=== PATIENT | male | born 1980 | race American Indian/Alaskan Native ===

== ENCOUNTER 2020-09-24 19:45 | Emergency (ER) | payer MEDICAID ==
[2020-09-24] MEDS ORDERED: Sodium Chloride 0.9% 10 ML Syringe FLUSH PRN (20:08)
[2020-09-24] MEDS ORDERED: Sodium Chloride 0.9% 2.5 ML Syringe FLUSH PRN (20:08)
--- NOTE | 2020-09-24 20:13 | EDM.PDOC ---
ED HPI GENERAL MEDICAL PROBLEM - General Chief Complaint: Lower Extremity Injury/Pain Stated Complaint: RECENT FEET SURGERY COMPLICATIONS Time Seen by Provider: 09/24/20 19:51 - History of Present Illness INITIAL COMMENTS - FREE TEXT/NARRATIVE: History of present illness: [] The patient has 2 complaints. The right foot has an ulcer and his newspaper vendor plans to revise and possibly put some hardware into the right foot because the chronic degenerative changes. The ulcer broke open over the last few days. The patient on the left foot has a recent amputation of the great toe. This was done at [facility] by Dr. Kenny Wyatt [phone] the of this month. The wound dehisced 3 days ago. He has progressive increased drainage and foul smell when he changes the dressings. He does not see his newspaper vendor until next week. The patient is a diabetic and his blood sugars run in the 300s. He does not perceive pain as well as ordinarily because he has neuropathy. The patient has no systemic signs of illness such as fever weakness chills or nausea. Review of systems: As per history of present illness and below otherwise all systems reviewed and negative. Past medical history: As per history of present illness and as reviewed below otherwise noncontributory. Surgical history: As per history of present illness and as reviewed below otherwise noncontributory. Social history: No reported history of drug or alcohol abuse. Family history: As per history of present illness and as reviewed below otherwise noncontributory. Physical exam: Constitutional - well developed, well-nourished and in no acute distress HEENT - normocephalic, no evidence of trauma - external nose and mouth normal - no mass in neck and no JVD - mucosae moist EYES - full EOM, PERRL, no icterus - no evidence of inflammation, injection, or drainage Respiratory - no respiratory distress, equal bilateral expansion Musculoskeletal foot has swelling at the MPJ with a bunion that has a wound dehiscence 1-1/2 cm x 4 mm. The left foot has a dehiscence of his surgical wound with deep full-thickness dehiscence and yellow purulent foul-smelling material coming from the wound. It was swabbed for culture. Missing the large toe on the left foot which is a surgical amputation site. No gross deformity of long bones or joints - no tenderness, swelling or edema Neurologic - Alert and oriented times four - CN II-XII grossly intact - motor sensory and coordination symmetrically normal Psychiatric - appropriate mood and affect with normal thought content Hematologic - No petechiae or purpura - mucosa appropriate color and sclera not pale - normal nail bed color and refill Integument - no rash or evidence of trauma - normal turgor Diagnostics: [] Therapeutics: [] Impression: [] Plan: [] Definitive disposition and diagnosis as appropriate pending reevaluation and review of above. left foot Pain Score (Numeric/FACES): 8 - Related Data Allergies Allergy/AdvReac Type Severity Reaction Status Date / Time No Known Allergies Allergy Verified 09/24/20 19:52 Home Meds: Home Meds Insulin Humalog 10 units SUBCUT TIDAC 07/07/14 [History] Insulin Levimir 100 units SUBCUT BIDAC 07/07/14 [History] metFORMIN [Glucophage] 2,000 mg PO DAILY 07/07/14 [History] Hydrocodone/Acetaminophen [Frierson 5-325 Tablet] 1 each PO ASDIRECTED PRN 09/24/20 [History] levoFLOXacin [Levofloxacin] 250 mg PO DAILY 09/24/20 [History] Past Medical History HEENT History: Reports: Impaired Vision Cardiovascular History: Reports: Hypertension Respiratory History: Reports: None Gastrointestinal History: Reports: None Genitourinary History: Reports: None Neurological History: Reports: None Psychiatric History: Reports: None Endocrine/Metabolic History: Reports: Diabetes, Type II Hematologic History: Reports: None Dermatologic History: Reports: None - Infectious Disease History Infectious Disease History: Reports: Chicken Pox - Past Surgical History Musculoskeletal Surgical History: Reports: Amputation Other Musculoskeletal Surgeries/Procedures:: left foot surgery Social & Family History - Family History Family Medical History: Noncontributory - Tobacco Use Tobacco Use Status *Q: Current Every Day Tobacco User Years of Tobacco use: 20 Packs/Tins Daily: 1 - Recreational Drug Use Recreational Drug Use: No Review of Systems - Review of Systems Review Of Systems: Comprehensive ROS is negative, except as noted in HPI. ED EXAM, GENERAL - Physical Exam Exam: See Below Free Text/Narrative:: Physical exam as in the HPI Course - Vital Signs Text/Narrative:: [place] case with , his newspaper vendor partner. He agreed with the plan to remove the sutures that were no longer functional holding the skin together, irrigate out the dehisced area, and start wet-to-dry dressings. He agreed with a one-time vancomycin and then continue Levaquin. The patient is to call in the morning as needed and follow-up next week as scheduled. Last Recorded V/S: Last Vital Signs Temp 98.1 F 09/24/20 19:55 Pulse 113 H 09/24/20 19:55 Resp 18 09/24/20 19:55 BP 140/89 09/24/20 19:55 Pulse Ox 96 09/24/20 19:55 - Orders/Labs/Meds Orders: Active Orders 24 hr Category Date Time Status Communication Order [RC] STAT Care 09/24/20 20:10 Active Sodium Chloride 0.9% [Saline Flush] Med 09/24/20 20:08 Active 10 ml FLUSH ASDIRECTED PRN Sodium Chloride 0.9% [Saline Flush] Med 09/24/20 20:08 Active 2.5 ml FLUSH ASDIRECTED PRN Vancomycin 1 gm Med 09/24/20 20:10 Active Sodium Chloride 0.9% [Normal Saline (AdvBag)] 250 ml IV ONETIME Saline Lock Insert [OM.PC] Stat Oth 09/24/20 20:09 Ordered Medication Orders Vancomycin HCl 1 gm/ Sodium (Chloride) 250 mls @ 166 mls/hr IV ONETIME ONE Stop: 09/24/20 21:40 Last Admin: 09/24/20 20:50 Dose: 166 mls/hr Documented by: QAMAR Sodium Chloride (Saline Flush) 10 ml FLUSH ASDIRECTED PRN PRN Reason: Keep Vein Open Sodium Chloride (Saline Flush) 2.5 ml FLUSH ASDIRECTED PRN PRN Reason: Keep Vein Open Labs: Laboratory Tests 09/24/20 09/24/20 09/24/20 Range/Units 20:21 20:21 20:21 WBC 9.50 (4.0-11.0) K/uL RBC 4.92 (4.50-5.90) M/uL Hgb 14.8 (13.0-17.0) g/dL Hct 42.6 (38.0-50.0) % MCV 86.6 (80.0-98.0) fL MCH 30.1 (27.0-32.0) pg MCHC 34.7 (31.0-37.0) g/dL RDW Std Deviation 43.8 (28.0-62.0) fl RDW Coeff of Deena 14 (11.0-15.0) % Plt Count 337 (150-400) K/uL MPV 9.90 (7.40-12.00) fL Neut % (Auto) 65.7 (48.0-80.0) % Lymph % (Auto) 23.8 (16.0-40.0) % [place] % (Auto) 8.3 (0.0-15.0) % Eos % (Auto) 1.8 (0.0-7.0) % Baso % (Auto) 0.4 (0.0-1.5) % Neut # (Auto) 6.2 H (1.4-5.7) K/uL Lymph # (Auto) 2.3 (0.6-2.4) K/uL [place] # (Auto) 0.8 (0.0-0.8) K/uL Eos # (Auto) 0.2 (0.0-0.7) K/uL Baso # (Auto) 0.0 (0.0-0.1) K/uL Nucleated RBC % 0.0 /100WBC Nucleated RBCs # 0 K/uL ESR 79 H (0-14) mm/hr Sodium 134 L (136-148) mmol/L Potassium 3.5 (3.5-5.1) mmol/L Chloride 101 (98-107) mmol/L Carbon Dioxide 22.5 (21.0-32.0) mmol/L BUN 17 (7.0-18.0) mg/dL Creatinine 1.5 H (0.8-1.3) mg/dL Est Cr Clr Drug Dosing 80.85 mL/min Estimated GFR (MDRD) 51.3 ml/min Glucose 293 H (74-106) mg/dL Calcium 8.2 L (8.5-10.1) mg/dL Meds: Medications Generic Name Dose Route Start Last Admin Trade Name Freq PRN Reason Stop Dose Admin Vancomycin HCl 1 gm/ Sodium 250 mls @ 166 mls/hr 09/24/20 20:10 09/24/20 20:50 Chloride IV 09/24/20 21:40 166 mls/hr ONETIME ONE Administration Sodium Chloride 10 ml 09/24/20 20:08 Saline Flush FLUSH ASDIRECTED PRN Keep Vein Open Sodium Chloride 2.5 ml 09/24/20 20:08 Saline Flush FLUSH ASDIRECTED PRN Keep Vein Open Discontinued Medications Generic Name Dose Route Start Last Admin Trade Name Yovani PRN Reason Stop Dose Admin Vancomycin HCl Confirm 09/24/20 20:40 Vancocin Administered 09/24/20 20:41 Dose 1 gm .ROUTE .STK-MED ONE Departure - Departure Time of Disposition: 21:25 Disposition: Home, Self-Care 01 Condition: Good Clinical Impression: Dehiscence of amputation stump, Wound infection Ulcer of right foot Qualifiers: Non-pressure ulcer stage: limited to breakdown of skin Qualified Code(s): L97.511 - Non-pressure chronic ulcer of other part of right foot limited to breakdown of skin - Discharge Information Instructions: Diabetes Mellitus and Foot Care Referrals: Porfirio Man [Primary Care Provider] - Kenny Wyatt DPM [Ordering Only Provider] - Forms: ED Department Discharge Additional Instructions: To carolann Falcon. Do wet-to-dry dressings. If you get signs of illness such as fever weakness of your legs return to the emergency department or call your doctor tomorrow. Follow-up as scheduled The following information is given to patients seen in the emergency department who are being discharged to home. This information is to outline your options for follow-up care. We provide all patients seen in our emergency department with a follow-up referral. The need for follow-up, as well as the timing and circumstances, are variable depending upon the specifics of your emergency department visit. If you don't have a primary care physician on staff, we will provide you with a referral. We always advise you to contact your personal physician following an emergency department visit to inform them of the circumstance of the visit and for follow-up with them and/or the need for any referrals to a consulting specialist. The emergency department will also refer you to a specialist when appropriate. This referral assures that you have the opportunity for follow-up care with a specialist. All of these measure are taken in an effort to provide you with optimal care, which includes your follow-up. Under all circumstances we always encourage you to contact your private physician who remains a resource for coordinating your care. When calling for follow-up care, please make the office aware that this follow-up is from your recent emergency room visit. If for any reason you are refused follow-up, please contact the [facility] Emergency Department at and asked to speak to the emergency department charge nurse. [facility] [address] [place] [address] [facility] [address] [place] [address] Sepsis Event Note (ED) - Evaluation Sepsis Screening Result: No Definite Risk - Focused Exam Vital Signs: Vital Signs Temp Pulse Resp BP Pulse Ox 09/24/20 19:55 98.1 F 113 H 18 140/89 96 - My Orders Last 24 Hours: My Active Orders 09/24/20 20:08 Sodium Chloride 0.9% [Saline Flush] 10 ml FLUSH ASDIRECTED PRN Sodium Chloride 0.9% [Saline Flush] 2.5 ml FLUSH ASDIRECTED PRN 09/24/20 20:09 Saline Lock Insert [OM.PC] Stat 09/24/20 20:10 Communication Order [RC] STAT Vancomycin 1 gm Sodium Chloride 0.9% [Normal Saline (AdvBag)] 250 ml IV ONETIME - Assessment/Plan Last 24 Hours: My Active Orders 09/24/20 20:08 Sodium Chloride 0.9% [Saline Flush] 10 ml FLUSH ASDIRECTED PRN Sodium Chloride 0.9% [Saline Flush] 2.5 ml FLUSH ASDIRECTED PRN 09/24/20 20:09 Saline Lock Insert [OM.PC] Stat 09/24/20 20:10 Communication Order [RC] STAT Vancomycin 1 gm Sodium Chloride 0.9% [Normal Saline (AdvBag)] 250 ml IV ONETIME
--- NOTE | 2020-09-24 20:38 | CR ---
Indication: Infection at a dehisced amputation site Technique: AP and lateral views Comparison: None Findings: There is demonstration of prior amputation of the distal 1st and 2nd digits with likely chronic hammertoe deformities of the 3rd through 5th digits. There is focal soft tissue swelling and subcutaneous emphysema within the soft tissues anterior to the osteotomy site. There is no overt periosteal reaction or osteolysis. Impression: Demonstration of prior amputation of the 1st and 2nd digits with subcutaneous emphysema in the soft tissues consistent with history of amputation. No obvious osteolysis is noted, however if there remains persisting concern an MRI with contrast is more sensitive to detect subtle edema and enhancement in the setting of osteomyelitis. Dictated by Darren Yoder MD @ Sep 24 2020 8:34PM Signed by Dr. Darren Yoder @ Sep 24 2020 8:36PM
[2020-09-24] MEDS ORDERED: Vancomycin 1 GM AdvVial ONE (20:40)
[2020-09-24 20:41] LABS: CARBON DIOXIDE,CO2 22.5 mmol/L (21.0-32.0); POTASSIUM,K 3.5 mmol/L (3.5-5.1)
== END 2020-09-24 22:16 | disposition home or self-care (01) ==
LOC: MW.ED 19:45
DX: T87.81 Dehiscence of amputation stump (principal); T87.44 Infection of amputation stump, left lower extremity; L97.511 Non-pressure chronic ulcer of other part of right foot limited to breakdown of skin; I10 Essential (primary) hypertension; E11.9 Type 2 diabetes mellitus without complications; Z79.4 Long term (current) use of insulin; Z79.899 Other long term (current) drug therapy; F17.210 Nicotine dependence, cigarettes, uncomplicated
CPT/HCPCS: 36415; 73620; 80048; 85025; 85652; 87070; 96365; 99284; J3370; J7050; 87077; 87186; 99283

== ENCOUNTER 2021-11-03 09:53 | Emergency (ER) | payer MEDICAID ==
--- NOTE | 2021-11-03 10:52 | EDM.PDOC ---
ED HPI GENERAL MEDICAL PROBLEM - General Chief Complaint: Eye Problems Stated Complaint: BLURRY VISION RT EYE Time Seen by Provider: 11/03/21 10:00 Source of Information: Reports: Patient History Limitations: Reports: No Limitations - History of Present Illness INITIAL COMMENTS - FREE TEXT/NARRATIVE: Patient is a 41-year-old male history of diabetes presents today for seeing what he believes is blood or something red in his right eye. He woke up and had this. Denies any trauma to the eye denies any change in his vision denies any pain to the eye. States has never had this before in the past. Other than the redness in his eye does not have any other complaints or concerns. - Related Data Allergies Allergy/AdvReac Type Severity Reaction Status Date / Time No Known Allergies Allergy Verified 11/03/21 10:03 Home Meds: Home Meds Insulin Humalog 10 units SUBCUT TIDAC 07/07/14 [History] Insulin Levimir 100 units SUBCUT BIDAC 07/07/14 [History] metFORMIN [Glucophage] 2,000 mg PO DAILY 07/07/14 [History] Empagliflozin [Jardiance] 25 mg PO 11/03/21 [History] Sertraline [Zoloft] 100 mg PO DAILY 11/03/21 [History] Past Medical History HEENT History: Reports: Impaired Vision Cardiovascular History: Reports: Hypertension Respiratory History: Reports: None Gastrointestinal History: Reports: None Genitourinary History: Reports: None Neurological History: Reports: None Psychiatric History: Reports: None Endocrine/Metabolic History: Reports: Diabetes, Type II Hematologic History: Reports: None Dermatologic History: Reports: None - Infectious Disease History Infectious Disease History: Reports: Chicken Pox - Past Surgical History Musculoskeletal Surgical History: Reports: Amputation Other Musculoskeletal Surgeries/Procedures:: left foot surgery Social & Family History - Family History Family Medical History: No Pertinent Family History - Tobacco Use Tobacco Use Status *Q: Current Every Day Tobacco User Years of Tobacco use: 28 Packs/Tins Daily: 1 - Caffeine Use Caffeine Use: Reports: None - Alcohol Use Days Per Week of Alcohol Use: 1 Number of Drinks Per Day: 12 Total Drinks Per Week: 12 - Recreational Drug Use Recreational Drug Use: No ED ROS GENERAL - Review of Systems Review Of Systems: See Below Constitutional: Reports: No Symptoms HEENT: Reports: Other (Redness and eye field) Respiratory: Reports: No Symptoms Cardiovascular: Reports: No Symptoms Endocrine: Reports: No Symptoms GI/Abdominal: Reports: No Symptoms : Reports: No Symptoms Musculoskeletal: Reports: No Symptoms Skin: Reports: No Symptoms Neurological: Reports: No Symptoms Psychiatric: Reports: No Symptoms Hematologic/Lymphatic: Reports: No Symptoms Immunologic: Reports: No Symptoms ED EXAM GENERAL W FULL EYE - Physical Exam Exam: See Below Exam Limited By: No Limitations General Appearance: Alert, WD/WN, No Apparent Distress Eye Exam: Bilateral Eye: EOMI, PERRL Eyelids: Bilateral: Normal Appearance Conjunctiva & Sclera: Bilateral: Normal Appearance Cornea Exam: Bilateral: Normal Appearance Extraocular Movements: Bilateral: Intact Pupils: Normal Accommodation Ears: Normal External Exam Head: Atraumatic Respiratory/Chest: No Respiratory Distress Neurological: Alert, Oriented, Normal Cognition, Normal Gait Course - Vital Signs Last Recorded V/S: Last Vital Signs Temp 98.3 F 11/03/21 10:04 Pulse 98 11/03/21 10:04 Resp 16 11/03/21 10:04 BP 195/116 H 11/03/21 10:04 Pulse Ox 98 11/03/21 10:04 - Orders/Labs/Meds Orders: Active Orders 24 hr Category Date Time Status Visual Acuity [Vision Test] [RC] ASDIRECTED Care 11/03/21 10:45 Ordered Departure - Departure Time of Disposition: 10:50 Disposition: Home, Self-Care 01 Condition: Good Clinical Impression: Vitreous hemorrhage, Vitreous floaters of right eye - Discharge Information *PRESCRIPTION DRUG MONITORING PROGRAM REVIEWED*: Not Applicable *COPY OF PRESCRIPTION DRUG MONITORING REPORT IN PATIENT MELISSA: Not Applicable Instructions: Eye Floaters Additional Instructions: You are seen today for seeing a possible red floater in your right eye. We did a bedside sonogram and you could have something called vitreal hemorrhage we are not sure and cannot really confirm the diagnosis we would like to refer you to the eye clinic the numbers below as well as address they can see today at 2:45 PM please make every effort to go there. If you have any other complaints please feel free to return to the ER otherwise follow-up with primary care physician. The following information is given to patients seen in the emergency department who are being discharged to home. This information is to outline your options for follow-up care. We provide all patients seen in our emergency department with a follow-up referral. The need for follow-up, as well as the timing and circumstances, are variable depending upon the specifics of your emergency department visit. If you don't have a primary care physician on staff, we will provide you with a referral. We always advise you to contact your personal physician following an emergency department visit to inform them of the circumstance of the visit and for follow-up with them and/or the need for any referrals to a consulting specialist. The emergency department will also refer you to a specialist when appropriate. This referral assures that you have the opportunity for follow-up care with a specialist. All of these measure are taken in an effort to provide you with optimal care, which includes your follow-up. Under all circumstances we always encourage you to contact your private physician who remains a resource for coordinating your care. When calling for follow-up care, please make the office aware that this follow-up is from your recent emergency room visit. If for any reason you are refused follow-up, please contact the [facility] Emergency Department at and asked to speak to the emergency department charge nurse. Please follow up with your primary care physician. If you do not have a primary care physician, see below: Ophthalmology Location [address] [place] [id number] [address] Sepsis Event Note (ED) - Evaluation Sepsis Screening Result: No Definite Risk - Focused Exam Vital Signs: Vital Signs Temp Pulse Resp BP Pulse Ox 11/03/21 10:04 98.3 F 98 16 195/116 H 98 - My Orders Last 24 Hours: My Active Orders 11/03/21 10:45 Visual Acuity [Vision Test] [RC] ASDIRECTED - Assessment/Plan Last 24 Hours: My Active Orders 11/03/21 10:45 Visual Acuity [Vision Test] [RC] ASDIRECTED Plan: Patient is a 41-year-old male history of diabetes presents today for seen red floaters in his eye. Does not have any vision changes no pain on exam we did do a ocular ultrasound and we do see some floaters which could be a vitreal hemorrhage. We spoke to the senior web developer and they can see the patient today this afternoon at 245 patient will be sent over there.
== END 2021-11-03 11:09 | disposition home or self-care (01) ==
LOC: MW.ED 09:53
DX: H43.391 Other vitreous opacities, right eye (principal); H43.11 Vitreous hemorrhage, right eye; I10 Essential (primary) hypertension; E11.9 Type 2 diabetes mellitus without complications; Z72.0 Tobacco use; Z79.4 Long term (current) use of insulin; Z79.899 Other long term (current) drug therapy
CPT/HCPCS: 99283

== ENCOUNTER 2022-06-20 12:57 | Emergency (ER) | payer MEDICARE, MEDICAID | END 2022-06-20 15:19 | disposition home or self-care (01) | LOC: MW.ED 12:57 | DX: N40.1 Benign prostatic hyperplasia with lower urinary tract symptoms (principal); R33.9 Retention of urine, unspecified; I10 Essential (primary) hypertension; E11.9 Type 2 diabetes mellitus without complications; Z79.4 Long term (current) use of insulin | CPT/HCPCS: 51798; 81001; 99283 ==

== ENCOUNTER 2022-11-13 22:37 | Emergency (ER) | payer MEDICARE, MEDICAID ==
[2022-11-13] MEDS ORDERED: Morphine 4 MG/ML Syringe IVPUSH ONE (23:00)
[2022-11-14 00:28] LABS: CARBON DIOXIDE,CO2 27.8 mmol/L (21.0-32.0); POTASSIUM,K 3.3 mmol/L (3.5-5.1)
[2022-11-14] MEDS ORDERED: Piperacillin/Tazobactam 2.25 GM in Sodium Chloride 0.9% 50 ML IV STA (02:11)
[2022-11-14] MEDS ORDERED: Doxycycline 100 MG Cap PO ONE (02:18)
[2022-11-14] MEDS ORDERED: VANCOmycin 2 GM/400 ML 2 GM in Premix Bag 1 BAG IV ONE (02:30)
[2022-11-14] MEDS ORDERED: Nicotine 21 MG/24 Hr Patch TRDERM ONE (03:09)
[2022-11-14] MEDS ORDERED: Acetaminophen 500 MG Tab PO ONE (03:39)
== END 2022-11-14 05:38 ==
LOC: MW.ED 22:37
DX: L03.314 Cellulitis of groin (principal); N45.2 Orchitis; I10 Essential (primary) hypertension; E11.9 Type 2 diabetes mellitus without complications; Z79.4 Long term (current) use of insulin; Z79.84 Long term (current) use of oral hypoglycemic drugs; Z79.899 Other long term (current) drug therapy; Z20.822 Contact with and (suspected) exposure to COVID-19
CPT/HCPCS: 36415; 74176; 76870; 80053; 83605; 85025; 87040; 93976; 96365; 96366; 96367; 96375; 99285; A9270; J2270; J2543; J3370; U0002

== ENCOUNTER 2023-03-18 06:42 | Day surgery (SDC) | payer MEDICARE, MEDICAID, OTHER ==
[~2023-03-18 06:42] MED LIST: Lactated Ringers 1,000 ML IV SCH
[2023-03-18] MEDS ORDERED: Sodium Chloride 0.9% 500 ML IV STA (07:02)
[2023-03-18] MEDS ORDERED: Lidocaine 2% 5 ML SDV ONE (07:29)
[2023-03-18] MEDS ORDERED: Water For Injection, Sterile 20 ML ONE (07:29)
[2023-03-18] MEDS ORDERED: Propofol 200 MG/20 ML SDV ONE ×2 (07:29→08:26)
[2023-03-18] MEDS ORDERED: Dexmedetomidine 200 MCG/2 ML SDV ONE (07:29)
[2023-03-18] MEDS ORDERED: fentaNYL 100 MCG/2 ML SDV ONE (07:30)
[2023-03-18] MEDS ORDERED: Bupivacaine 0.5% 30 ML SDV ONE (07:47)
[2023-03-18] MEDS ORDERED: Lidocaine 1% 20 ML MDV ONE (07:48)
[2023-03-18] MEDS ORDERED: Lidocaine 1% 5 ML VIAL ONE (08:08)
[2023-03-18] MEDS ORDERED: propofoL 0 ML ONE (08:25)
[2023-03-18] MEDS ORDERED: Lactated Ringers 1,000 ML IV SCH (09:15)
== END 2023-03-18 10:25 | disposition home or self-care (01) ==
LOC: MW.SDS 06:42
PROVIDERS: ATTEND Surgery
DX: E11.22 Type 2 diabetes mellitus with diabetic chronic kidney disease (principal); I12.0 Hypertensive chronic kidney disease with stage 5 chronic kidney disease or end stage renal disease; N18.6 End stage renal disease; I77.0 Arteriovenous fistula, acquired; F41.9 Anxiety disorder, unspecified; N40.0 Benign prostatic hyperplasia without lower urinary tract symptoms; F17.210 Nicotine dependence, cigarettes, uncomplicated; Z98.890 Other specified postprocedural states; Z79.01 Long term (current) use of anticoagulants; Z79.899 Other long term (current) drug therapy
CPT/HCPCS: 36589; 82947; J2704; J3010; J3490; J7040; 00400; 88300

== ENCOUNTER 2023-04-25 17:16 | Emergency (ER) | payer MEDICARE, MEDICAID ==
[2023-04-25] MEDS ORDERED: Sulfamethoxazole/Trimethoprim 800-160 MG Tab PO ONE (18:05)
[2023-04-25] MEDS ORDERED: Amoxicillin/Clavulanate K 875-125 MG Tab PO ONE (18:05)
== END 2023-04-25 19:16 | disposition home or self-care (01) ==
LOC: MW.ED 17:16
DX: E11.621 Type 2 diabetes mellitus with foot ulcer (principal); L97.529 Non-pressure chronic ulcer of other part of left foot with unspecified severity; L97.519 Non-pressure chronic ulcer of other part of right foot with unspecified severity; E78.00 Pure hypercholesterolemia, unspecified; I12.0 Hypertensive chronic kidney disease with stage 5 chronic kidney disease or end stage renal disease; N18.6 End stage renal disease; E66.9 Obesity, unspecified; Z68.33 Body mass index [BMI] 33.0-33.9, adult; Z99.2 Dependence on renal dialysis; Z79.899 Other long term (current) drug therapy; Z79.01 Long term (current) use of anticoagulants; Z91.030 Bee allergy status
CPT/HCPCS: 73620; 99283; A9270

== ENCOUNTER 2024-05-17 09:02 | Emergency (ER) | payer MEDICAID, MEDICARE ==
[2024-05-17 09:26] LABS: BASOPHILS ABSOLUTE AUTO 0.02 K/uL (0.00-0.20); BASOPHILS PERCENT AUTO 0.2 % (0.0-1.0); EOSINOPHILS ABSOLUTE AUTO 0.26 K/uL (0.00-0.45); EOSINOPHILS PERCENT AUTO 2.5 % (0.0-6.0); HEMOGLOBIN 8.5 g/dL (14.0-18.0); IMMATURE GRAN ABSOLUTE AUTO 0.03 K/uL (0.00-0.05); IMMATURE GRAN PERCENT AUTO 0.3 % (0.0-0.4); LYMPHOCYTES ABSOLUTE AUTO 1.37 K/uL (1.00-4.80); LYMPHOCYTES PERCENT AUTO 13.1 % (24.0-44.0); MEAN CORPUSCULAR HEMOGLOBIN 32.4 pg (28.0-32.0); MEAN CORPUSCULAR VOLUME 95.4 fL (83.0-99.0); MEAN PLATELET VOLUME 9.7 fL (9.4-12.4); MONOCYTES ABSOLUTE AUTO 0.91 K/uL (0.00-0.80); MONOCYTES PERCENT AUTO 8.7 % (0.0-8.0); NEUTROPHILS ABSOLUTE AUTO 7.88 K/uL (1.80-7.70); NEUTROPHILS PERCENT AUTO 75.2 % (41.0-71.0); PLATELET COUNT,PLT 214 K/uL (150-400); RED BLOOD CELL COUNT 2.62 M/uL (4.52-5.90); WHITE BLOOD CELL COUNT,WBC 10.47 K/uL (3.9-11.3)
[2024-05-17 09:47] LABS: D-DIMER QUANTITATIVE 3.75 mg/L FEU (0.00-0.50); INR 1.11 (0.86-1.11); PTT,PARTIAL THROMBOPLSTIN TIME 35.9 SEC (23.9-30.7)
[2024-05-17] MEDS: cefTRIAXone 2 GM in Sodium Chloride 0.9% 50 ML IV ONE (09:48)
[2024-05-17] MEDS: Acetaminophen 500 MG Tab PO ONE (09:48)
[2024-05-17] MEDS: Sodium Chloride 0.9% 10 ML Syringe FLUSH PRN (09:48)
[2024-05-17] MEDS: Sodium Chloride 0.9% 2.5 ML Syringe FLUSH PRN (09:49)
[2024-05-17 10:01] LABS: LACTIC ACID 1.1 mmol/L (0.4-2.0)
[2024-05-17 10:08] LABS: BILIRUBIN TOTAL 0.6 mg/dL (0.2-1.0); CALCIUM 7.7 mg/dL (8.5-10.1); CARBON DIOXIDE,CO2 33.9 mmol/L (21.0-32.0); CREATININE 8.2 mg/dL (0.8-1.3); EST CRCL DRUG DOSING (CG) 14.19 mL/min; MAGNESIUM 1.5 mg/dL (1.8-2.4); PHOSPHORUS 3.3 mg/dL (2.6-4.7); POTASSIUM,K 3.6 mmol/L (3.5-5.1); PROTEIN TOTAL,TP 8.5 g/dL (6.4-8.2); TSH ULTRASENSITIVE 0.71 uIU/mL (0.36-3.74)
[2024-05-17 10:12] LABS: A/G RATIO 0.6 (0.9-1.6)
[2024-05-17] MEDS: Iopamidol 755 MG/ML 500 ML Multipack Bottle IVPUSH STA (12:07)
[2024-05-17] MEDS ORDERED: VANCOmycin 2 GM/400 ML 2 GM in Premix Bag 1 BAG IV ONE (13:45)
== END 2024-05-17 14:27 | disposition left against medical advice (07) ==
LOC: MW.ED 09:02
DX: L03.115 Cellulitis of right lower limb (principal); L97.519 Non-pressure chronic ulcer of other part of right foot with unspecified severity; R00.8 Other abnormalities of heart beat; I12.0 Hypertensive chronic kidney disease with stage 5 chronic kidney disease or end stage renal disease; N18.6 End stage renal disease; E78.00 Pure hypercholesterolemia, unspecified; E83.42 Hypomagnesemia; Z91.030 Bee allergy status; Z79.01 Long term (current) use of anticoagulants; Z88.5 Allergy status to narcotic agent; Z79.899 Other long term (current) drug therapy; Z99.2 Dependence on renal dialysis
CPT/HCPCS: 36415; 71275; 73630; 80053; 83605; 83735; 83880; 84100; 84443; 84484; 85025; 85379; 85610; 85730; 87040; 93005; 93970; 96365; 96367; 99284; A9270; J0696; J3475; J3490; Q9967; 93010; 96374; 99285; 99291; J3370

== ENCOUNTER 2024-05-17 16:13 | Emergency (ER) | payer MEDICARE ==
[2024-05-17] MEDS ORDERED: Sodium Chloride 0.9% 2.5 ML Syringe FLUSH PRN (16:17)
[2024-05-17] MEDS ORDERED: Sodium Chloride 0.9% 10 ML Syringe FLUSH PRN (16:17)
[2024-05-17] MEDS: VANCOmycin 2 GM/400 ML 2 GM in Premix Bag 1 BAG IV ONE (17:39)
== END 2024-05-17 17:41 ==
LOC: MW.ED 16:13
DX: L03.115 Cellulitis of right lower limb (principal); L97.519 Non-pressure chronic ulcer of other part of right foot with unspecified severity; E83.42 Hypomagnesemia; R00.8 Other abnormalities of heart beat; I12.0 Hypertensive chronic kidney disease with stage 5 chronic kidney disease or end stage renal disease; N18.6 End stage renal disease; Z99.2 Dependence on renal dialysis; E78.00 Pure hypercholesterolemia, unspecified; Z91.030 Bee allergy status; Z88.5 Allergy status to narcotic agent; Z79.01 Long term (current) use of anticoagulants; Z79.899 Other long term (current) drug therapy
CPT/HCPCS: 93005; 96374; 99284; J3370; 93010; 99285

== ENCOUNTER 2024-05-21 13:19 | Emergency (ER) | payer MEDICARE ==
[2024-05-21 15:10] LABS: BASOPHILS ABSOLUTE AUTO 0.02 K/uL (0.00-0.20); BASOPHILS PERCENT AUTO 0.2 % (0.0-1.0); EOSINOPHILS ABSOLUTE AUTO 0.26 K/uL (0.00-0.45); EOSINOPHILS PERCENT AUTO 2.7 % (0.0-6.0); HEMATOCRIT 21.1 % (42.0-52.0); HEMOGLOBIN 7.3 g/dL (14.0-18.0); IMMATURE GRAN ABSOLUTE AUTO 0.03 K/uL (0.00-0.05); IMMATURE GRAN PERCENT AUTO 0.3 % (0.0-0.4); LYMPHOCYTES PERCENT AUTO 16.3 % (24.0-44.0); MEAN CORPUSCULAR HEMOGLOBIN 32.4 pg (28.0-32.0); MEAN CORPUSCULAR HGB CONC 34.6 g/dL (32.0-36.0); MEAN CORPUSCULAR VOLUME 93.8 fL (83.0-99.0); MEAN PLATELET VOLUME 8.9 fL (9.4-12.4); MONOCYTES ABSOLUTE AUTO 0.63 K/uL (0.00-0.80); MONOCYTES PERCENT AUTO 6.4 % (0.0-8.0); NEUTROPHILS ABSOLUTE AUTO 7.25 K/uL (1.80-7.70); NEUTROPHILS PERCENT AUTO 74.1 % (41.0-71.0); PLATELET COUNT,PLT 230 K/uL (150-400); RED BLOOD CELL COUNT 2.25 M/uL (4.52-5.90); WHITE BLOOD CELL COUNT,WBC 9.79 K/uL (3.9-11.3)
[2024-05-21 15:50] LABS: A/G RATIO 0.5 (0.9-1.6); ALBUMIN 2.9 g/dL (3.4-5.0); BILIRUBIN TOTAL 0.5 mg/dL (0.2-1.0); CALCIUM 8.3 mg/dL (8.5-10.1); CREATININE 9.9 mg/dL (0.8-1.3); EST CRCL DRUG DOSING (CG) 11.75 mL/min; POTASSIUM,K 3.8 mmol/L (3.5-5.1); PROTEIN TOTAL,TP 8.3 g/dL (6.4-8.2); TSH ULTRASENSITIVE 2.13 uIU/mL (0.36-3.74)
[2024-05-21] MEDS: Metoprolol Tartrate 5 MG/5 ML SDV IVPUSH ONE (16:52)
[2024-05-21] MEDS: Sodium Chloride 0.9% 2.5 ML Syringe FLUSH PRN (16:52)
[2024-05-21] MEDS: Sodium Chloride 0.9% 10 ML Syringe FLUSH PRN (16:52)
[2024-05-21] MEDS: Diltiazem 25 MG/5 ML SDV IVPUSH ONE ×2 (17:56→18:21)
[2024-05-21] MEDS ORDERED: Diltiazem 180 MG Cap.CD PO ONE (19:10)
[2024-05-21] MEDS ORDERED: Diltiazem 25 MG/5 ML SDV IVPUSH ONE (19:10)
== END 2024-05-21 20:10 | disposition left against medical advice (07) ==
LOC: MW.ED 13:19
DX: I48.91 Unspecified atrial fibrillation (principal); R00.0 Tachycardia, unspecified; I10 Essential (primary) hypertension; E78.00 Pure hypercholesterolemia, unspecified; E66.9 Obesity, unspecified; Z68.34 Body mass index [BMI] 34.0-34.9, adult; Z88.5 Allergy status to narcotic agent; Z88.8 Allergy status to other drugs, medicaments and biological substances; Z79.899 Other long term (current) drug therapy; Z75.8 Other problems related to medical facilities and other health care
CPT/HCPCS: 36415; 80053; 83880; 84443; 84484; 85025; 93005; 96374; 96375; 99285; J3490

== ENCOUNTER 2024-05-22 13:39 | Emergency (ER) | payer MEDICARE ==
[2024-05-22] MEDS ORDERED: Diltiazem 100 MG in Sodium Chloride 0.9% 100 ML IV SCH (18:15)
[2024-05-22] MEDS: Sodium Chloride 0.9% 2.5 ML Syringe FLUSH PRN (19:36)
[2024-05-22] MEDS: Sodium Chloride 0.9% 10 ML Syringe FLUSH PRN (19:36)
[2024-05-22 19:52] LABS: BASOPHILS ABSOLUTE AUTO 0.04 K/uL (0.00-0.20); BASOPHILS PERCENT AUTO 0.4 % (0.0-1.0); EOSINOPHILS ABSOLUTE AUTO 0.25 K/uL (0.00-0.45); EOSINOPHILS PERCENT AUTO 2.5 % (0.0-6.0); HEMATOCRIT 25.2 % (42.0-52.0); HEMOGLOBIN 8.5 g/dL (14.0-18.0); IMMATURE GRAN ABSOLUTE AUTO 0.05 K/uL (0.00-0.05); IMMATURE GRAN PERCENT AUTO 0.5 % (0.0-0.4); LYMPHOCYTES ABSOLUTE AUTO 2.23 K/uL (1.00-4.80); LYMPHOCYTES PERCENT AUTO 22.3 % (24.0-44.0); MEAN CORPUSCULAR HGB CONC 33.7 g/dL (32.0-36.0); MEAN CORPUSCULAR VOLUME 94.7 fL (83.0-99.0); MEAN PLATELET VOLUME 10.5 fL (9.4-12.4); NEUTROPHILS ABSOLUTE AUTO 6.75 K/uL (1.80-7.70); NEUTROPHILS PERCENT AUTO 67.3 % (41.0-71.0); PLATELET COUNT,PLT 239 K/uL (150-400); RED BLOOD CELL COUNT 2.66 M/uL (4.52-5.90); WHITE BLOOD CELL COUNT,WBC 10.02 K/uL (3.9-11.3)
[2024-05-22 20:01] LABS: CALCIUM 8.8 mg/dL (8.5-10.1); CARBON DIOXIDE,CO2 29.2 mmol/L (21.0-32.0); CREATININE 13.4 mg/dL (0.8-1.3); EST CRCL DRUG DOSING (CG) 8.68 mL/min; POTASSIUM,K 4.8 mmol/L (3.5-5.1)
[2024-05-22 20:14] LABS: INR 1.21 (0.86-1.11)
== END 2024-05-22 21:32 | disposition left against medical advice (07) ==
LOC: MW.ED 13:39
DX: I48.92 Unspecified atrial flutter (principal); I12.9 Hypertensive chronic kidney disease with stage 1 through stage 4 chronic kidney disease, or unspecified chronic kidney disease; N18.9 Chronic kidney disease, unspecified; D63.1 Anemia in chronic kidney disease; E78.00 Pure hypercholesterolemia, unspecified; E66.9 Obesity, unspecified; F17.210 Nicotine dependence, cigarettes, uncomplicated; Z79.891 Long term (current) use of opiate analgesic; Z79.2 Long term (current) use of antibiotics; Z79.899 Other long term (current) drug therapy; Z88.5 Allergy status to narcotic agent; Z91.030 Bee allergy status
CPT/HCPCS: 36415; 80048; 83735; 84484; 85025; 85610; 93005; 99285; J3490; 93010; 99284

== ENCOUNTER 2024-05-23 10:46 | Emergency (ER) | payer MEDICARE ==
[2024-05-23] MEDS: Sodium Chloride 0.9% 10 ML Syringe FLUSH PRN (11:17)
[2024-05-23] MEDS: Sodium Chloride 0.9% 2.5 ML Syringe FLUSH PRN (11:17)
[2024-05-23 11:38] LABS: BASOPHILS ABSOLUTE AUTO 0.04 K/uL (0.00-0.20); BASOPHILS PERCENT AUTO 0.5 % (0.0-1.0); EOSINOPHILS PERCENT AUTO 2.3 % (0.0-6.0); HEMATOCRIT 23.8 % (42.0-52.0); HEMOGLOBIN 8.1 g/dL (14.0-18.0); IMMATURE GRAN ABSOLUTE AUTO 0.04 K/uL (0.00-0.05); IMMATURE GRAN PERCENT AUTO 0.5 % (0.0-0.4); LYMPHOCYTES ABSOLUTE AUTO 1.42 K/uL (1.00-4.80); MEAN CORPUSCULAR HEMOGLOBIN 32.1 pg (28.0-32.0); MEAN CORPUSCULAR VOLUME 94.4 fL (83.0-99.0); MEAN PLATELET VOLUME 9.1 fL (9.4-12.4); MONOCYTES ABSOLUTE AUTO 0.74 K/uL (0.00-0.80); MONOCYTES PERCENT AUTO 8.3 % (0.0-8.0); NEUTROPHILS ABSOLUTE AUTO 6.43 K/uL (1.80-7.70); NEUTROPHILS PERCENT AUTO 72.4 % (41.0-71.0); PLATELET COUNT,PLT 248 K/uL (150-400); RED BLOOD CELL COUNT 2.52 M/uL (4.52-5.90); WHITE BLOOD CELL COUNT,WBC 8.87 K/uL (3.9-11.3)
[2024-05-23 12:12] LABS: A/G RATIO 0.6 (0.9-1.6); ALBUMIN 3.3 g/dL (3.4-5.0); BILIRUBIN TOTAL 0.7 mg/dL (0.2-1.0); CALCIUM 8.7 mg/dL (8.5-10.1); CARBON DIOXIDE,CO2 27.1 mmol/L (21.0-32.0); CREATININE 14.6 mg/dL (0.8-1.3); EST CRCL DRUG DOSING (CG) 7.97 mL/min; POTASSIUM,K 4.8 mmol/L (3.5-5.1); PROTEIN TOTAL,TP 8.6 g/dL (6.4-8.2)
== END 2024-05-23 14:30 ==
LOC: MW.ED 10:46
DX: I48.92 Unspecified atrial flutter (principal); E11.621 Type 2 diabetes mellitus with foot ulcer; D63.1 Anemia in chronic kidney disease; K92.2 Gastrointestinal hemorrhage, unspecified; I12.0 Hypertensive chronic kidney disease with stage 5 chronic kidney disease or end stage renal disease; N18.6 End stage renal disease; E11.22 Type 2 diabetes mellitus with diabetic chronic kidney disease; E78.00 Pure hypercholesterolemia, unspecified; E66.9 Obesity, unspecified; Z99.2 Dependence on renal dialysis; Z68.34 Body mass index [BMI] 34.0-34.9, adult; Z79.01 Long term (current) use of anticoagulants; Z79.899 Other long term (current) drug therapy; Z79.891 Long term (current) use of opiate analgesic; Z91.030 Bee allergy status; Z88.5 Allergy status to narcotic agent; Z75.8 Other problems related to medical facilities and other health care
CPT/HCPCS: 36415; 71045; 80053; 83880; 84484; 85025; 93005; 99285; J3490; 93010

== ENCOUNTER 2024-06-11 16:17 | Emergency (ER) | payer MEDICARE, OTHER ==
[2024-06-11 17:05] LABS: BASOPHILS ABSOLUTE AUTO 0.03 K/uL (0.00-0.20); BASOPHILS PERCENT AUTO 0.3 % (0.0-1.0); EOSINOPHILS ABSOLUTE AUTO 0.33 K/uL (0.00-0.45); EOSINOPHILS PERCENT AUTO 3.6 % (0.0-6.0); HEMATOCRIT 28.1 % (42.0-52.0); HEMOGLOBIN 9.5 g/dL (14.0-18.0); IMMATURE GRAN ABSOLUTE AUTO 0.02 K/uL (0.00-0.05); IMMATURE GRAN PERCENT AUTO 0.2 % (0.0-0.4); LYMPHOCYTES ABSOLUTE AUTO 1.28 K/uL (1.00-4.80); MEAN CORPUSCULAR HEMOGLOBIN 31.9 pg (28.0-32.0); MEAN CORPUSCULAR HGB CONC 33.8 g/dL (32.0-36.0); MEAN CORPUSCULAR VOLUME 94.3 fL (83.0-99.0); MEAN PLATELET VOLUME 10.1 fL (9.4-12.4); MONOCYTES ABSOLUTE AUTO 0.54 K/uL (0.00-0.80); MONOCYTES PERCENT AUTO 5.9 % (0.0-8.0); NEUTROPHILS ABSOLUTE AUTO 6.97 K/uL (1.80-7.70); PLATELET COUNT,PLT 172 K/uL (150-400); RED BLOOD CELL COUNT 2.98 M/uL (4.52-5.90); WHITE BLOOD CELL COUNT,WBC 9.17 K/uL (3.9-11.3)
[2024-06-11 17:33] LABS: A/G RATIO 0.6 (0.9-1.6); ALBUMIN 3.3 g/dL (3.4-5.0); CALCIUM 8.7 mg/dL (8.5-10.1); CARBON DIOXIDE,CO2 34.7 mmol/L (21.0-32.0); CREATININE 5.7 mg/dL (0.8-1.3); EST CRCL DRUG DOSING (CG) 20.41 mL/min; MAGNESIUM 1.8 mg/dL (1.8-2.4); POTASSIUM,K 4.6 mmol/L (3.5-5.1); PROTEIN TOTAL,TP 8.6 g/dL (6.4-8.2)
[2024-06-11] MEDS: Apixaban 2.5 MG Tab PO ONE (18:49)
[2024-06-11 19:33] LABS: PRO B-TYPE NATRIUR PEPT,BNPPRO 41481 pg/mL (0-125)
[2024-06-11] MEDS: hydrALAZINE 25 MG Tab PO STA (21:10)
== END 2024-06-11 21:20 | disposition home or self-care (01) ==
LOC: MW.ED 16:17
DX: R07.89 Other chest pain (principal); I13.0 Hypertensive heart and chronic kidney disease with heart failure and stage 1 through stage 4 chronic kidney disease, or unspecified chronic kidney disease; I50.9 Heart failure, unspecified; N18.6 End stage renal disease; Z99.2 Dependence on renal dialysis; E78.00 Pure hypercholesterolemia, unspecified; E66.9 Obesity, unspecified; Z75.8 Other problems related to medical facilities and other health care; Z88.5 Allergy status to narcotic agent; Z91.030 Bee allergy status; Z79.899 Other long term (current) drug therapy; Z68.34 Body mass index [BMI] 34.0-34.9, adult
CPT/HCPCS: 36415; 71045; 80053; 83735; 83880; 84484; 85025; 93005; 99285; A9270; 93010

== ENCOUNTER 2024-12-14 10:30 | Emergency (ER) | payer MEDICARE ==
[2024-12-14] MEDS ORDERED: Sodium Chloride 0.9% 10 ML Syringe FLUSH PRN (10:49)
[2024-12-14] MEDS ORDERED: Sodium Chloride 0.9% 2.5 ML Syringe FLUSH PRN (10:49)
[2024-12-14 11:05] LABS: BASOPHILS ABSOLUTE AUTO 0.03 K/uL (0.00-0.20); BASOPHILS PERCENT AUTO 0.4 % (0.0-1.0); EOSINOPHILS ABSOLUTE AUTO 0.21 K/uL (0.00-0.45); EOSINOPHILS PERCENT AUTO 2.5 % (0.0-6.0); HEMATOCRIT 19.6 % (42.0-52.0); HEMOGLOBIN 6.7 g/dL (14.0-18.0); IMMATURE GRAN ABSOLUTE AUTO 0.02 K/uL (0.00-0.05); IMMATURE GRAN PERCENT AUTO 0.2 % (0.0-0.4); LYMPHOCYTES ABSOLUTE AUTO 1.83 K/uL (1.00-4.80); LYMPHOCYTES PERCENT AUTO 21.8 % (24.0-44.0); MEAN CORPUSCULAR HGB CONC 34.2 g/dL (32.0-36.0); MEAN CORPUSCULAR VOLUME 96.6 fL (83.0-99.0); MEAN PLATELET VOLUME 9.7 fL (9.4-12.4); MONOCYTES ABSOLUTE AUTO 0.68 K/uL (0.00-0.80); MONOCYTES PERCENT AUTO 8.1 % (0.0-8.0); NEUTROPHILS ABSOLUTE AUTO 5.61 K/uL (1.80-7.70); PLATELET COUNT,PLT 162 K/uL (150-400); RED BLOOD CELL COUNT 2.03 M/uL (4.52-5.90); WHITE BLOOD CELL COUNT,WBC 8.38 K/uL (3.9-11.3)
[2024-12-14 12:05] LABS: A/G RATIO 0.7 (0.9-1.6); ALBUMIN 3.4 g/dL (3.4-5.0); BILIRUBIN TOTAL 0.4 mg/dL (0.2-1.0); CALCIUM 8.8 mg/dL (8.5-10.1); CARBON DIOXIDE,CO2 32.3 mmol/L (21.0-32.0); CREATININE 10.7 mg/dL (0.8-1.3); EST CRCL DRUG DOSING (CG) 10.87 mL/min; POTASSIUM,K 5.4 mmol/L (3.5-5.1); PROTEIN TOTAL,TP 8.1 g/dL (6.4-8.2)
== END 2024-12-14 15:15 | disposition home or self-care (01) ==
LOC: MW.ED 10:30
DX: N18.6 End stage renal disease (principal); D63.1 Anemia in chronic kidney disease; I48.91 Unspecified atrial fibrillation; E78.00 Pure hypercholesterolemia, unspecified; I12.0 Hypertensive chronic kidney disease with stage 5 chronic kidney disease or end stage renal disease; E66.9 Obesity, unspecified; F17.210 Nicotine dependence, cigarettes, uncomplicated; Z68.32 Body mass index [BMI] 32.0-32.9, adult; Z88.5 Allergy status to narcotic agent; Z91.030 Bee allergy status; Z79.01 Long term (current) use of anticoagulants; Z79.899 Other long term (current) drug therapy; Z75.8 Other problems related to medical facilities and other health care; Z99.2 Dependence on renal dialysis
CPT/HCPCS: 36415; 36430; 80053; 85025; 86850; 86900; 86901; 86920; 99284; P9016

== ENCOUNTER 2024-12-22 12:21 | Emergency (ER) | payer MEDICARE ==
[2024-12-22] MEDS ORDERED: Sodium Chloride 0.9% 10 ML Syringe FLUSH PRN (12:28)
[2024-12-22 12:34] LABS: BASOPHILS ABSOLUTE AUTO 0.05 K/uL (0.00-0.20); BASOPHILS PERCENT AUTO 0.7 % (0.0-1.0); EOSINOPHILS ABSOLUTE AUTO 0.14 K/uL (0.00-0.45); EOSINOPHILS PERCENT AUTO 1.8 % (0.0-6.0); HEMOGLOBIN 8.2 g/dL (14.0-18.0); IMMATURE GRAN ABSOLUTE AUTO 0.03 K/uL (0.00-0.05); IMMATURE GRAN PERCENT AUTO 0.4 % (0.0-0.4); LYMPHOCYTES ABSOLUTE AUTO 1.82 K/uL (1.00-4.80); LYMPHOCYTES PERCENT AUTO 23.9 % (24.0-44.0); MEAN CORPUSCULAR HEMOGLOBIN 32.7 pg (28.0-32.0); MEAN CORPUSCULAR HGB CONC 34.2 g/dL (32.0-36.0); MEAN CORPUSCULAR VOLUME 95.6 fL (83.0-99.0); MEAN PLATELET VOLUME 9.5 fL (9.4-12.4); MONOCYTES ABSOLUTE AUTO 0.66 K/uL (0.00-0.80); MONOCYTES PERCENT AUTO 8.7 % (0.0-8.0); NEUTROPHILS ABSOLUTE AUTO 4.91 K/uL (1.80-7.70); NEUTROPHILS PERCENT AUTO 64.5 % (41.0-71.0); PLATELET COUNT,PLT 210 K/uL (150-400); RED BLOOD CELL COUNT 2.51 M/uL (4.52-5.90); WHITE BLOOD CELL COUNT,WBC 7.61 K/uL (3.9-11.3)
[2024-12-22 12:59] LABS: PERCENT FE SATURATION 28.04 % (20-55)
[2024-12-22 13:01] LABS: A/G RATIO 0.7 (0.9-1.6); ALBUMIN 3.7 g/dL (3.4-5.0); BILIRUBIN TOTAL 0.6 mg/dL (0.2-1.0); CALCIUM 9.3 mg/dL (8.5-10.1); CARBON DIOXIDE,CO2 30.7 mmol/L (21.0-32.0); CREATININE 8.7 mg/dL (0.8-1.3); EST CRCL DRUG DOSING (CG) 13.37 mL/min; PHOSPHORUS 4.7 mg/dL (2.6-4.7); POTASSIUM,K 5.3 mmol/L (3.5-5.1); PROTEIN TOTAL,TP 8.9 g/dL (6.4-8.2)
[2024-12-22 13:02] LABS: INR 1.17 (0.86-1.11)
== END 2024-12-22 14:30 | disposition home or self-care (01) ==
LOC: MW.ED 12:21
DX: I12.0 Hypertensive chronic kidney disease with stage 5 chronic kidney disease or end stage renal disease (principal); N18.6 End stage renal disease; D63.1 Anemia in chronic kidney disease; Z99.2 Dependence on renal dialysis; E78.00 Pure hypercholesterolemia, unspecified; E66.9 Obesity, unspecified; Z68.32 Body mass index [BMI] 32.0-32.9, adult; Z79.891 Long term (current) use of opiate analgesic; Z79.899 Other long term (current) drug therapy; Z88.5 Allergy status to narcotic agent; Z91.030 Bee allergy status
CPT/HCPCS: 36415; 36430; 80053; 83550; 84100; 85025; 85610; 86850; 86900; 86901; 86920; 99284

== ENCOUNTER 2025-02-06 06:42 | Day surgery (SDC) | payer MEDICARE, OTHER ==
[2025-02-06] MEDS ORDERED: Bupivacaine 0.25% 30 ML SDV ONE (07:03)
[2025-02-06] MEDS ORDERED: ceFAZolin 1 GM Vial ONE (07:40)
== END 2025-02-06 09:00 | disposition home or self-care (01) ==
LOC: MW.SDS 06:42
PROVIDERS: ATTEND Orthopaedic Surgery
DX: M65.331 Trigger finger, right middle finger (principal); I13.2 Hypertensive heart and chronic kidney disease with heart failure and with stage 5 chronic kidney disease, or end stage renal disease; I50.9 Heart failure, unspecified; N18.6 End stage renal disease; Z79.899 Other long term (current) drug therapy; Z79.01 Long term (current) use of anticoagulants; Z88.5 Allergy status to narcotic agent; Z88.8 Allergy status to other drugs, medicaments and biological substances; Z91.030 Bee allergy status
CPT/HCPCS: 26055; J0665; J0690

== ENCOUNTER 2025-04-30 16:32 | Emergency (ER) | payer MEDICARE, OTHER ==
[2025-04-30 17:01] LABS: BASOPHILS ABSOLUTE AUTO 0.02 K/uL (0.00-0.20); BASOPHILS PERCENT AUTO 0.3 % (0.0-1.0); EOSINOPHILS ABSOLUTE AUTO 0.17 K/uL (0.00-0.45); EOSINOPHILS PERCENT AUTO 2.2 % (0.0-6.0); HEMATOCRIT 21.7 % (42.0-52.0); HEMOGLOBIN 7.5 g/dL (14.0-18.0); IMMATURE GRAN ABSOLUTE AUTO 0.03 K/uL (0.00-0.05); IMMATURE GRAN PERCENT AUTO 0.4 % (0.0-0.4); LYMPHOCYTES ABSOLUTE AUTO 1.53 K/uL (1.00-4.80); LYMPHOCYTES PERCENT AUTO 19.6 % (24.0-44.0); MEAN CORPUSCULAR HEMOGLOBIN 31.8 pg (28.0-32.0); MEAN CORPUSCULAR HGB CONC 34.6 g/dL (32.0-36.0); MEAN CORPUSCULAR VOLUME 91.9 fL (83.0-99.0); MEAN PLATELET VOLUME 8.8 fL (9.4-12.4); MONOCYTES ABSOLUTE AUTO 0.85 K/uL (0.00-0.80); MONOCYTES PERCENT AUTO 10.9 % (0.0-8.0); NEUTROPHILS ABSOLUTE AUTO 5.19 K/uL (1.80-7.70); NEUTROPHILS PERCENT AUTO 66.6 % (41.0-71.0); PLATELET COUNT,PLT 172 K/uL (150-400); RED BLOOD CELL COUNT 2.36 M/uL (4.52-5.90); WHITE BLOOD CELL COUNT,WBC 7.79 K/uL (3.9-11.3)
[2025-04-30 17:30] LABS: A/G RATIO 0.7 (0.9-1.6); ALANINE AMINOTRANSFERASE,ALT 21 IU/L (14-63); ALBUMIN 3.4 g/dL (3.4-5.0); ALKALINE PHOSPHATASE 199 U/L (46-116); ASPARTATE AMNIOTRANSFERASE,AST 7 IU/L (15-37); BILIRUBIN TOTAL 0.5 mg/dL (0.2-1.0); BLOOD UREA NITROGEN,BUN 67 mg/dL (7.0-18.0); CALCIUM 9.3 mg/dL (8.5-10.1); CARBON DIOXIDE,CO2 32.7 mmol/L (21.0-32.0); CHLORIDE,CL 94 mmol/L (98-107); CREATININE 9.8 mg/dL (0.8-1.3); GLUCOSE RANDOM 121 mg/dL (74-106); POTASSIUM,K 5.3 mmol/L (3.5-5.1); PROTEIN TOTAL,TP 8.4 g/dL (6.4-8.2); SODIUM,NA 131 mmol/L (136-148)
[2025-04-30 17:35] LABS: ESTIMATED GFR 6 mL/min (>60)
== END 2025-04-30 18:05 | disposition home or self-care (01) ==
LOC: MW.ED 16:32
DX: Z02.89 Encounter for other administrative examinations (principal); I12.9 Hypertensive chronic kidney disease with stage 1 through stage 4 chronic kidney disease, or unspecified chronic kidney disease; N18.9 Chronic kidney disease, unspecified; I48.91 Unspecified atrial fibrillation; E78.00 Pure hypercholesterolemia, unspecified; Z75.3 Unavailability and inaccessibility of health-care facilities; Z91.030 Bee allergy status; Z88.5 Allergy status to narcotic agent; Z79.01 Long term (current) use of anticoagulants; Z79.899 Other long term (current) drug therapy
CPT/HCPCS: 36415; 80053; 85025; 86850; 86900; 86901; 93005; 93010; 99284; 99285

== ENCOUNTER 2025-08-03 15:34 | Emergency (ER) | payer MEDICARE, OTHER ==
[2025-08-03 16:31] LABS: BASOPHILS ABSOLUTE AUTO 0.05 K/uL (0.00-0.20); BASOPHILS PERCENT AUTO 0.3 % (0.0-1.0); EOSINOPHILS ABSOLUTE AUTO 0.01 K/uL (0.00-0.45); EOSINOPHILS PERCENT AUTO 0.1 % (0.0-6.0); IMMATURE GRAN ABSOLUTE AUTO 0.06 K/uL (0.00-0.05); IMMATURE GRAN PERCENT AUTO 0.4 % (0.0-0.4); LYMPHOCYTES ABSOLUTE AUTO 0.50 K/uL (1.00-4.80); LYMPHOCYTES PERCENT AUTO 2.9 % (24.0-44.0); MEAN PLATELET VOLUME 9.4 fL (9.4-12.4); MONOCYTES ABSOLUTE AUTO 0.73 K/uL (0.00-0.80); MONOCYTES PERCENT AUTO 4.3 % (0.0-8.0); NEUTROPHILS ABSOLUTE AUTO 15.72 K/uL (1.80-7.70); NEUTROPHILS PERCENT AUTO 92.0 % (41.0-71.0); NRBC ABSOLUTE 0.00 K/uL (0.00-0.02); NRBC PERCENT 0.0 /100WBC (0.0-0.2); PLATELET COUNT,PLT 180 K/uL (150-400); RED BLOOD CELL COUNT 4.30 M/uL (4.52-5.90); WHITE BLOOD CELL COUNT,WBC 17.07 K/uL (3.9-11.3)
[2025-08-03 16:44] LABS: INR 1.06 (0.86-1.11)
[2025-08-03 17:04] LABS: A/G RATIO 0.6 (0.9-1.6); ALANINE AMINOTRANSFERASE,ALT 51.0 IU/L (14-63); ASPARTATE AMNIOTRANSFERASE,AST 29.0 IU/L (15-37); BILIRUBIN TOTAL 0.7 mg/dL (0.2-1.0); BLOOD UREA NITROGEN,BUN 69.0 mg/dL (7.0-18.0); CARBON DIOXIDE,CO2 29.5 mmol/L (21.0-32.0); CHLORIDE,CL 91.0 mmol/L (98-107); CREATININE 10.5 mg/dL (0.8-1.3); EST CRCL DRUG DOSING (CG) 10.96 mL/min; GLUCOSE RANDOM 150.0 mg/dL (74-106); PROTEIN TOTAL,TP 10.1 g/dL (6.4-8.2); SODIUM,NA 130.0 mmol/L (136-148)
[2025-08-03 17:08] LABS: ESTIMATED GFR 6.0 mL/min (>60); POTASSIUM,K 7.2 mmol/L (3.5-5.1)
[2025-08-03] MEDS ORDERED: Sodium Chloride 0.9% 10 ML Syringe FLUSH PRN (17:09)
[2025-08-03] MEDS ORDERED: 50% Dextrose in Water 50 ML Syringe IVPUSH PRN (17:09)
[2025-08-03] MEDS ORDERED: Sodium Chloride 0.9% 2.5 ML Syringe FLUSH PRN (17:09)
[2025-08-03] MEDS: 50% Dextrose in Water 50 ML Syringe IV ONE (17:21)
[2025-08-03] MEDS: Insulin Regular, Human 100 Units/ML 10 ML Vial IVPUSH ONE (17:22)
[2025-08-03] MEDS: Calcium Gluconate 10% 1 GM/10 ML SDV IVPUSH ONE (17:31)
[2025-08-03] MEDS: Albuterol 0.083% 2.5 MG/3 ML Neb Soln NEB ONE (17:32)
[2025-08-03] MEDS: Ondansetron 4 MG/2 ML SDV ONE (17:38)
[2025-08-03] MEDS: Ondansetron 4 MG/2 ML SDV IVPUSH ONE (17:44)
[2025-08-03 17:53] LABS: LACTIC ACID 2.6 mmol/L (0.4-2.0)
[2025-08-03] MEDS: Pantoprazole 80 MG in Sodium Chloride 0.9% 10 ML IVPUSH ONE ×2 (17:53→17:55)
[2025-08-03 19:24] LABS: BLOOD UREA NITROGEN,BUN 71.0 mg/dL (7.0-18.0); CARBON DIOXIDE,CO2 28.2 mmol/L (21.0-32.0); CHLORIDE,CL 92.0 mmol/L (98-107); CREATININE 10.6 mg/dL (0.8-1.3); EST CRCL DRUG DOSING (CG) 10.86 mL/min; GLUCOSE RANDOM 134.0 mg/dL (74-106); POTASSIUM,K 6.0 mmol/L (3.5-5.1); SODIUM,NA 131.0 mmol/L (136-148)
[2025-08-03 19:43] LABS: ESTIMATED GFR 6.0 mL/min (>60)
== END 2025-08-03 19:28 | disposition left against medical advice (07) ==
LOC: MW.ED 15:34
DX: I12.9 Hypertensive chronic kidney disease with stage 1 through stage 4 chronic kidney disease, or unspecified chronic kidney disease (principal); E87.5 Hyperkalemia; R00.0 Tachycardia, unspecified; R11.10 Vomiting, unspecified; I48.91 Unspecified atrial fibrillation; E78.00 Pure hypercholesterolemia, unspecified; E66.9 Obesity, unspecified; K13.79 Other lesions of oral mucosa; M19.90 Unspecified osteoarthritis, unspecified site; N18.9 Chronic kidney disease, unspecified; Z99.2 Dependence on renal dialysis; Z79.01 Long term (current) use of anticoagulants; Z79.899 Other long term (current) drug therapy; Z91.030 Bee allergy status; Z88.8 Allergy status to other drugs, medicaments and biological substances; Z68.33 Body mass index [BMI] 33.0-33.9, adult
CPT/HCPCS: 36415; 71045; 80048; 80053; 80307; 82947; 83605; 83735; 84132; 84484; 85014; 85018; 85025; 85610; 87040; 87428; 93005; 96365; 96375; 99285; A9270; J0612; J2405; J2470; J2543; J7030; 99283; J1815-GY

== ENCOUNTER 2025-08-04 11:58 | Emergency (ER) | payer MEDICARE, OTHER ==
[2025-08-04] MEDS ORDERED: Sodium Chloride 0.9% 10 ML Syringe FLUSH PRN (12:37)
[2025-08-04] MEDS ORDERED: Sodium Chloride 0.9% 2.5 ML Syringe FLUSH PRN (12:37)
[2025-08-04 12:41] LABS: BASOPHILS ABSOLUTE AUTO 0.03 K/uL (0.00-0.20); BASOPHILS PERCENT AUTO 0.3 % (0.0-1.0); EOSINOPHILS ABSOLUTE AUTO 0.04 K/uL (0.00-0.45); EOSINOPHILS PERCENT AUTO 0.4 % (0.0-6.0); IMMATURE GRAN ABSOLUTE AUTO 0.05 K/uL (0.00-0.05); IMMATURE GRAN PERCENT AUTO 0.5 % (0.0-0.4); LYMPHOCYTES ABSOLUTE AUTO 0.70 K/uL (1.00-4.80); LYMPHOCYTES PERCENT AUTO 6.3 % (24.0-44.0); MEAN PLATELET VOLUME 11.5 fL (9.4-12.4); MONOCYTES ABSOLUTE AUTO 0.79 K/uL (0.00-0.80); MONOCYTES PERCENT AUTO 7.1 % (0.0-8.0); NEUTROPHILS ABSOLUTE AUTO 9.47 K/uL (1.80-7.70); NEUTROPHILS PERCENT AUTO 85.4 % (41.0-71.0); NRBC ABSOLUTE 0.00 K/uL (0.00-0.02); NRBC PERCENT 0.0 /100WBC (0.0-0.2); PLATELET COUNT,PLT 178 K/uL (150-400); RED BLOOD CELL COUNT 3.95 M/uL (4.52-5.90); WHITE BLOOD CELL COUNT,WBC 11.08 K/uL (3.9-11.3)
[2025-08-04 13:29] LABS: LACTIC ACID 1.2 mmol/L (0.4-2.0)
[2025-08-04 13:36] LABS: A/G RATIO 0.6 (0.9-1.6); ALANINE AMINOTRANSFERASE,ALT 49.0 IU/L (14-63); ASPARTATE AMNIOTRANSFERASE,AST 29.0 IU/L (15-37); BILIRUBIN TOTAL 0.7 mg/dL (0.2-1.0); BLOOD UREA NITROGEN,BUN 86.0 mg/dL (7.0-18.0); CARBON DIOXIDE,CO2 28.8 mmol/L (21.0-32.0); CHLORIDE,CL 90.0 mmol/L (98-107); CREATININE 12.9 mg/dL (0.8-1.3); EST CRCL DRUG DOSING (CG) 8.92 mL/min; ESTIMATED GFR 4.0 mL/min (>60); GLUCOSE RANDOM 128.0 mg/dL (74-106); POTASSIUM,K 6.2 mmol/L (3.5-5.1); PROTEIN TOTAL,TP 9.1 g/dL (6.4-8.2); SODIUM,NA 130.0 mmol/L (136-148)
[2025-08-04] MEDS: Albuterol 0.083% 2.5 MG/3 ML Neb Soln NEB ONE (14:01)
== END 2025-08-04 16:03 | disposition left against medical advice (07) ==
LOC: MW.ED 11:58
DX: E87.5 Hyperkalemia (principal); I12.0 Hypertensive chronic kidney disease with stage 5 chronic kidney disease or end stage renal disease; N18.6 End stage renal disease; E78.00 Pure hypercholesterolemia, unspecified; E66.9 Obesity, unspecified; Z68.34 Body mass index [BMI] 34.0-34.9, adult; Z88.5 Allergy status to narcotic agent; Z91.030 Bee allergy status; Z79.01 Long term (current) use of anticoagulants; Z79.899 Other long term (current) drug therapy; Z99.2 Dependence on renal dialysis
CPT/HCPCS: 36415; 80053; 83605; 83735; 85025; 87040; 93005; 99283; A9270; 93010; 99284

== ENCOUNTER 2025-08-05 11:08 | Emergency (ER) | payer MEDICARE, OTHER ==
[2025-08-05] MEDS ORDERED: Sodium Chloride 0.9% 10 ML Syringe FLUSH PRN (11:32)
[2025-08-05] MEDS ORDERED: Sodium Chloride 0.9% 2.5 ML Syringe FLUSH PRN (11:32)
[2025-08-05 11:54] LABS: BASOPHILS ABSOLUTE AUTO 0.02 K/uL (0.00-0.20); BASOPHILS PERCENT AUTO 0.3 % (0.0-1.0); EOSINOPHILS ABSOLUTE AUTO 0.15 K/uL (0.00-0.45); EOSINOPHILS PERCENT AUTO 2.5 % (0.0-6.0); IMMATURE GRAN ABSOLUTE AUTO 0.02 K/uL (0.00-0.05); IMMATURE GRAN PERCENT AUTO 0.3 % (0.0-0.4); LYMPHOCYTES ABSOLUTE AUTO 0.96 K/uL (1.00-4.80); LYMPHOCYTES PERCENT AUTO 15.8 % (24.0-44.0); MEAN PLATELET VOLUME 9.9 fL (9.4-12.4); MONOCYTES ABSOLUTE AUTO 1.07 K/uL (0.00-0.80); MONOCYTES PERCENT AUTO 17.7 % (0.0-8.0); NEUTROPHILS ABSOLUTE AUTO 3.84 K/uL (1.80-7.70); NEUTROPHILS PERCENT AUTO 63.4 % (41.0-71.0); NRBC ABSOLUTE 0.00 K/uL (0.00-0.02); NRBC PERCENT 0.0 /100WBC (0.0-0.2); PLATELET COUNT,PLT 166 K/uL (150-400); RED BLOOD CELL COUNT 3.73 M/uL (4.52-5.90); WHITE BLOOD CELL COUNT,WBC 6.06 K/uL (3.9-11.3)
[2025-08-05 12:14] LABS: LACTIC ACID 1.0 mmol/L (0.4-2.0)
[2025-08-05 12:21] LABS: A/G RATIO 0.6 (0.9-1.6); ALANINE AMINOTRANSFERASE,ALT 53.0 IU/L (14-63); ASPARTATE AMNIOTRANSFERASE,AST 38.0 IU/L (15-37); BILIRUBIN TOTAL 0.6 mg/dL (0.2-1.0); BLOOD UREA NITROGEN,BUN 101.0 mg/dL (7.0-18.0); CARBON DIOXIDE,CO2 28.8 mmol/L (21.0-32.0); CHLORIDE,CL 89.0 mmol/L (98-107); CREATININE 15.4 mg/dL (0.8-1.3); EST CRCL DRUG DOSING (CG) 7.47 mL/min; ESTIMATED GFR 4.0 mL/min (>60); GLUCOSE RANDOM 142.0 mg/dL (74-106); POTASSIUM,K 5.7 mmol/L (3.5-5.1); PROTEIN TOTAL,TP 9.3 g/dL (6.4-8.2); SODIUM,NA 131.0 mmol/L (136-148)
[2025-08-05] MEDS: cefTRIAXone 1 GM in Water For Injection, Sterile 10 ML IVPUSH ONE (15:43)
== END 2025-08-05 15:53 | disposition left against medical advice (07) ==
LOC: MW.ED 11:08
DX: K06.8 Other specified disorders of gingiva and edentulous alveolar ridge (principal); R89.5 Abnormal microbiological findings in specimens from other organs, systems and tissues; I12.9 Hypertensive chronic kidney disease with stage 1 through stage 4 chronic kidney disease, or unspecified chronic kidney disease; I48.91 Unspecified atrial fibrillation; E66.9 Obesity, unspecified; M19.90 Unspecified osteoarthritis, unspecified site; N18.6 End stage renal disease; Z79.899 Other long term (current) drug therapy; Z79.01 Long term (current) use of anticoagulants; Z91.030 Bee allergy status; Z88.8 Allergy status to other drugs, medicaments and biological substances; Z75.3 Unavailability and inaccessibility of health-care facilities; Z53.20 Procedure and treatment not carried out because of patient's decision for unspecified reasons; Z68.33 Body mass index [BMI] 33.0-33.9, adult
CPT/HCPCS: 36415; 80053; 83605; 83690; 83735; 85025; 87040; 96374; 99283; J0696

== ENCOUNTER 2025-08-10 07:55 | Emergency (ER) | payer MEDICARE, OTHER ==
[2025-08-10 08:13] LABS: BASOPHILS ABSOLUTE AUTO 0.05 K/uL (0.00-0.20); BASOPHILS PERCENT AUTO 0.5 % (0.0-1.0); EOSINOPHILS ABSOLUTE AUTO 0.32 K/uL (0.00-0.45); EOSINOPHILS PERCENT AUTO 2.9 % (0.0-6.0); IMMATURE GRAN ABSOLUTE AUTO 0.06 K/uL (0.00-0.05); IMMATURE GRAN PERCENT AUTO 0.5 % (0.0-0.4); LYMPHOCYTES ABSOLUTE AUTO 2.64 K/uL (1.00-4.80); LYMPHOCYTES PERCENT AUTO 24.1 % (24.0-44.0); MEAN PLATELET VOLUME 9.1 fL (9.4-12.4); MONOCYTES ABSOLUTE AUTO 0.51 K/uL (0.00-0.80); MONOCYTES PERCENT AUTO 4.7 % (0.0-8.0); NEUTROPHILS ABSOLUTE AUTO 7.36 K/uL (1.80-7.70); NEUTROPHILS PERCENT AUTO 67.3 % (41.0-71.0); NRBC ABSOLUTE 0.00 K/uL (0.00-0.02); NRBC PERCENT 0.0 /100WBC (0.0-0.2); PLATELET COUNT,PLT 225 K/uL (150-400); RED BLOOD CELL COUNT 3.51 M/uL (4.52-5.90); WHITE BLOOD CELL COUNT,WBC 10.94 K/uL (3.9-11.3)
[2025-08-10 08:34] LABS: A/G RATIO 0.7 (0.9-1.6); ALANINE AMINOTRANSFERASE,ALT 39 IU/L (14-63); ASPARTATE AMNIOTRANSFERASE,AST 24 IU/L (15-37); BILIRUBIN TOTAL 0.5 mg/dL (0.2-1.0); BLOOD UREA NITROGEN,BUN 109 mg/dL (7.0-18.0); CARBON DIOXIDE,CO2 24.8 mmol/L (21.0-32.0); CHLORIDE,CL 94 mmol/L (98-107); CREATININE 17.4 mg/dL (0.8-1.3); ESTIMATED GFR 3 mL/min (>60); GLUCOSE RANDOM 113 mg/dL (74-106); POTASSIUM,K 5.5 mmol/L (3.5-5.1); PRO B-TYPE NATRIUR PEPT,BNPPRO 10577 pg/mL (0-125); PROTEIN TOTAL,TP 8.8 g/dL (6.4-8.2); SODIUM,NA 136 mmol/L (136-148)
[2025-08-10] MEDS: Furosemide 40 MG/4 ML VIAL IVPUSH ONE (08:55)
== END 2025-08-10 09:39 | disposition home or self-care (01) ==
LOC: MW.ED 07:55
DX: R06.02 Shortness of breath (principal); I48.91 Unspecified atrial fibrillation; I10 Essential (primary) hypertension; E78.00 Pure hypercholesterolemia, unspecified; Z79.899 Other long term (current) drug therapy; Z79.01 Long term (current) use of anticoagulants; Z91.030 Bee allergy status; Z88.5 Allergy status to narcotic agent
CPT/HCPCS: 36415; 71045; 80053; 83735; 83880; 85025; 93005; 96374; 99285; J1938; 99283

== ENCOUNTER 2025-08-12 07:06 | Emergency (ER) | payer MEDICARE, OTHER ==
[2025-08-12 07:41] LABS: BASOPHILS ABSOLUTE AUTO 0.04 K/uL (0.00-0.20); BASOPHILS PERCENT AUTO 0.4 % (0.0-1.0); EOSINOPHILS ABSOLUTE AUTO 0.21 K/uL (0.00-0.45); EOSINOPHILS PERCENT AUTO 2.3 % (0.0-6.0); IMMATURE GRAN ABSOLUTE AUTO 0.02 K/uL (0.00-0.05); IMMATURE GRAN PERCENT AUTO 0.2 % (0.0-0.4); LYMPHOCYTES ABSOLUTE AUTO 1.76 K/uL (1.00-4.80); LYMPHOCYTES PERCENT AUTO 19.4 % (24.0-44.0); MEAN PLATELET VOLUME 8.7 fL (9.4-12.4); MONOCYTES ABSOLUTE AUTO 0.49 K/uL (0.00-0.80); MONOCYTES PERCENT AUTO 5.4 % (0.0-8.0); NEUTROPHILS ABSOLUTE AUTO 6.53 K/uL (1.80-7.70); NEUTROPHILS PERCENT AUTO 72.3 % (41.0-71.0); NRBC ABSOLUTE 0.00 K/uL (0.00-0.02); NRBC PERCENT 0.0 /100WBC (0.0-0.2); PLATELET COUNT,PLT 216 K/uL (150-400); RED BLOOD CELL COUNT 3.23 M/uL (4.52-5.90); WHITE BLOOD CELL COUNT,WBC 9.05 K/uL (3.9-11.3)
[2025-08-12 08:03] LABS: BLOOD UREA NITROGEN,BUN 136 mg/dL (7.0-18.0); CARBON DIOXIDE,CO2 22.6 mmol/L (21.0-32.0); CHLORIDE,CL 94 mmol/L (98-107); GLUCOSE RANDOM 113 mg/dL (74-106); POTASSIUM,K 6.0 mmol/L (3.5-5.1); SODIUM,NA 135 mmol/L (136-148)
[2025-08-12 08:10] LABS: CREATININE 20.1 mg/dL (0.8-1.3); EST CRCL DRUG DOSING (CG) 5.73 mL/min
[2025-08-12] MEDS ORDERED: 50% Dextrose in Water 50 ML Syringe IVPUSH PRN ×2 (08:16→10:47)
[2025-08-12] MEDS: Calcium Gluconate 10% 1 GM/10 ML SDV IVPUSH ONE ×2 (08:45→11:03)
[2025-08-12] MEDS: Furosemide 40 MG/4 ML VIAL IVPUSH ONE ×2 (08:55→13:58)
[2025-08-12] MEDS: 50% Dextrose in Water 50 ML Syringe IVPUSH ONE ×2 (08:57→11:03)
[2025-08-12] MEDS: Albuterol 0.083% 2.5 MG/3 ML Neb Soln NEB ONE ×2 (08:57→11:04)
[2025-08-12] MEDS: Insulin Regular, Human 100 Units/ML 10 ML Vial IVPUSH ONE ×2 (09:07→11:04)
[2025-08-12 10:42] LABS: BLOOD UREA NITROGEN,BUN 133 mg/dL (7.0-18.0); CARBON DIOXIDE,CO2 24.1 mmol/L (21.0-32.0); CHLORIDE,CL 95 mmol/L (98-107); GLUCOSE RANDOM 110 mg/dL (74-106); POTASSIUM,K 6.4 mmol/L (3.5-5.1); SODIUM,NA 134 mmol/L (136-148)
[2025-08-12 10:45] LABS: CREATININE 20.3 mg/dL (0.8-1.3); EST CRCL DRUG DOSING (CG) 5.67 mL/min
[2025-08-12 13:38] LABS: BLOOD UREA NITROGEN,BUN 129 mg/dL (7.0-18.0); CARBON DIOXIDE,CO2 22.0 mmol/L (21.0-32.0); CHLORIDE,CL 94 mmol/L (98-107); GLUCOSE RANDOM 127 mg/dL (74-106); POTASSIUM,K 6.3 mmol/L (3.5-5.1); SODIUM,NA 134 mmol/L (136-148)
[2025-08-12 13:47] LABS: CREATININE 20.4 mg/dL (0.8-1.3); EST CRCL DRUG DOSING (CG) 5.64 mL/min
== END 2025-08-12 14:18 | disposition home or self-care (01) ==
LOC: MW.ED 07:06
DX: E87.5 Hyperkalemia (principal); I48.91 Unspecified atrial fibrillation; I12.0 Hypertensive chronic kidney disease with stage 5 chronic kidney disease or end stage renal disease; N18.6 End stage renal disease; E78.00 Pure hypercholesterolemia, unspecified; Z79.899 Other long term (current) drug therapy; Z79.01 Long term (current) use of anticoagulants; Z88.5 Allergy status to narcotic agent; Z91.030 Bee allergy status; Z99.2 Dependence on renal dialysis; E66.9 Obesity, unspecified; Z68.35 Body mass index [BMI] 35.0-35.9, adult
CPT/HCPCS: 36415; 80048; 82947; 85025; 93005; 96374; 96375; 96376; 99285; A9270; J0612; J1938; 99283; J1815-GY

== ENCOUNTER 2025-08-13 15:10 | Emergency (ER) | payer MEDICARE, OTHER ==
[2025-08-13] MEDS ORDERED: Sodium Chloride 0.9% 2.5 ML Syringe FLUSH PRN (15:15)
[2025-08-13] MEDS ORDERED: Sodium Chloride 0.9% 10 ML Syringe FLUSH PRN (15:15)
[2025-08-13 15:26] LABS: BASOPHILS ABSOLUTE AUTO 0.05 K/uL (0.00-0.20); BASOPHILS PERCENT AUTO 0.5 % (0.0-1.0); EOSINOPHILS ABSOLUTE AUTO 0.22 K/uL (0.00-0.45); EOSINOPHILS PERCENT AUTO 2.0 % (0.0-6.0); IMMATURE GRAN ABSOLUTE AUTO 0.04 K/uL (0.00-0.05); IMMATURE GRAN PERCENT AUTO 0.4 % (0.0-0.4); LYMPHOCYTES ABSOLUTE AUTO 1.99 K/uL (1.00-4.80); LYMPHOCYTES PERCENT AUTO 18.0 % (24.0-44.0); MEAN PLATELET VOLUME 8.9 fL (9.4-12.4); MONOCYTES ABSOLUTE AUTO 0.52 K/uL (0.00-0.80); MONOCYTES PERCENT AUTO 4.7 % (0.0-8.0); NEUTROPHILS ABSOLUTE AUTO 8.24 K/uL (1.80-7.70); NEUTROPHILS PERCENT AUTO 74.4 % (41.0-71.0); NRBC ABSOLUTE 0.00 K/uL (0.00-0.02); NRBC PERCENT 0.0 /100WBC (0.0-0.2); PLATELET COUNT,PLT 223 K/uL (150-400); RED BLOOD CELL COUNT 3.09 M/uL (4.52-5.90); WHITE BLOOD CELL COUNT,WBC 11.06 K/uL (3.9-11.3)
[2025-08-13 15:41] LABS: INR 1.03 (0.86-1.11)
[2025-08-13 16:14] LABS: A/G RATIO 0.7 (0.9-1.6); ALANINE AMINOTRANSFERASE,ALT 27 IU/L (14-63); ASPARTATE AMNIOTRANSFERASE,AST 19 IU/L (15-37); BILIRUBIN TOTAL 0.5 mg/dL (0.2-1.0); BLOOD UREA NITROGEN,BUN 141 mg/dL (7.0-18.0); CARBON DIOXIDE,CO2 22.6 mmol/L (21.0-32.0); CHLORIDE,CL 91 mmol/L (98-107); GLUCOSE RANDOM 124 mg/dL (74-106); PHOSPHORUS 3.2 mg/dL (2.6-4.7); PRO B-TYPE NATRIUR PEPT,BNPPRO 21159 pg/mL (0-125); PROTEIN TOTAL,TP 8.5 g/dL (6.4-8.2); SODIUM,NA 132 mmol/L (136-148)
[2025-08-13 16:16] LABS: CREATININE 21.5 mg/dL (0.8-1.3); POTASSIUM,K 8.1 mmol/L (3.5-5.1)
[2025-08-13] MEDS ORDERED: 50% Dextrose in Water 50 ML Syringe IVPUSH PRN (16:35)
[2025-08-13] MEDS: Albuterol 0.083% 2.5 MG/3 ML Neb Soln NEB ONE (16:48)
[2025-08-13] MEDS: 50% Dextrose in Water 50 ML Syringe IVPUSH ONE (16:48)
[2025-08-13] MEDS: Insulin Regular, Human 100 Units/ML 10 ML Vial IVPUSH ONE (16:49)
[2025-08-13] MEDS: Calcium Gluconate 10% 1 GM/10 ML SDV IVPUSH ONE (17:11)
[2025-08-13] MEDS: Sodium Polystyrene Sulfonate 15 GM/60 ML Susp 60 ML Bot PO ONE (17:14)
== END 2025-08-13 19:33 ==
LOC: MW.ED 15:10
DX: R53.1 Weakness (principal); E87.70 Fluid overload, unspecified; Z88.5 Allergy status to narcotic agent; I10 Essential (primary) hypertension; E66.9 Obesity, unspecified; E87.5 Hyperkalemia; J81.0 Acute pulmonary edema; N18.6 End stage renal disease; E78.00 Pure hypercholesterolemia, unspecified; Z91.030 Bee allergy status; Z79.899 Other long term (current) drug therapy; Z99.2 Dependence on renal dialysis
CPT/HCPCS: 36415; 71045; 80053; 83735; 83880; 84100; 85025; 85610; 93005; 96374; 96375; 99285; A9270; J0612; 93010; 99284; J1815-GY

== ENCOUNTER 2025-08-21 16:27 | Emergency (ER) | payer MEDICARE, OTHER ==
[2025-08-21] MEDS ORDERED: Sodium Chloride 0.9% 10 ML Syringe FLUSH PRN (16:31)
[2025-08-21] MEDS ORDERED: Sodium Chloride 0.9% 2.5 ML Syringe FLUSH PRN (16:31)
[2025-08-21 16:49] LABS: BASOPHILS ABSOLUTE AUTO 0.05 K/uL (0.00-0.20); BASOPHILS PERCENT AUTO 0.5 % (0.0-1.0); EOSINOPHILS ABSOLUTE AUTO 0.28 K/uL (0.00-0.45); EOSINOPHILS PERCENT AUTO 2.8 % (0.0-6.0); IMMATURE GRAN ABSOLUTE AUTO 0.03 K/uL (0.00-0.05); IMMATURE GRAN PERCENT AUTO 0.3 % (0.0-0.4); LYMPHOCYTES ABSOLUTE AUTO 1.86 K/uL (1.00-4.80); LYMPHOCYTES PERCENT AUTO 18.8 % (24.0-44.0); MEAN PLATELET VOLUME 9.5 fL (9.4-12.4); MONOCYTES ABSOLUTE AUTO 0.57 K/uL (0.00-0.80); MONOCYTES PERCENT AUTO 5.8 % (0.0-8.0); NEUTROPHILS ABSOLUTE AUTO 7.10 K/uL (1.80-7.70); NEUTROPHILS PERCENT AUTO 71.8 % (41.0-71.0); NRBC ABSOLUTE 0.00 K/uL (0.00-0.02); NRBC PERCENT 0.0 /100WBC (0.0-0.2); PLATELET COUNT,PLT 193 K/uL (150-400); RED BLOOD CELL COUNT 2.65 M/uL (4.52-5.90); WHITE BLOOD CELL COUNT,WBC 9.89 K/uL (3.9-11.3)
[2025-08-21 17:23] LABS: A/G RATIO 0.7 (0.9-1.6); ALANINE AMINOTRANSFERASE,ALT 17.0 IU/L (14-63); ASPARTATE AMNIOTRANSFERASE,AST 15.0 IU/L (15-37); BILIRUBIN TOTAL 0.5 mg/dL (0.2-1.0); BLOOD UREA NITROGEN,BUN 148.0 mg/dL (7.0-18.0); CARBON DIOXIDE,CO2 20.0 mmol/L (21.0-32.0); CHLORIDE,CL 96.0 mmol/L (98-107); CREATININE 17.3 mg/dL (0.8-1.3); EST CRCL DRUG DOSING (CG) 6.65 mL/min; GLUCOSE RANDOM 108.0 mg/dL (74-106); PHOSPHORUS 4.0 mg/dL (2.6-4.7); PRO B-TYPE NATRIUR PEPT,BNPPRO 30301.0 pg/mL (0-125); PROTEIN TOTAL,TP 7.8 g/dL (6.4-8.2); SODIUM,NA 132.0 mmol/L (136-148)
[2025-08-21 17:26] LABS: ESTIMATED GFR 3.0 mL/min (>60); POTASSIUM,K 7.5 mmol/L (3.5-5.1)
[2025-08-21] MEDS ORDERED: 50% Dextrose in Water 50 ML Syringe IVPUSH PRN (17:33)
[2025-08-21] MEDS: 50% Dextrose in Water 50 ML Syringe IVPUSH ONE (17:52)
[2025-08-21] MEDS: Albuterol 0.083% 2.5 MG/3 ML Neb Soln NEB ONE (17:53)
[2025-08-21] MEDS: Calcium Gluconate 10% 1 GM/10 ML SDV IVPUSH ONE (17:53)
[2025-08-21] MEDS: Sodium Polystyrene Sulfonate 15 GM/60 ML Susp 60 ML Bot PO ONE (17:53)
[2025-08-21] MEDS: Insulin Regular, Human 100 Units/ML 10 ML Vial IVPUSH ONE (17:54)
== END 2025-08-21 19:11 | disposition left against medical advice (07) ==
LOC: MW.ED 16:27
DX: I12.0 Hypertensive chronic kidney disease with stage 5 chronic kidney disease or end stage renal disease (principal); N18.9 Chronic kidney disease, unspecified; E78.00 Pure hypercholesterolemia, unspecified; I48.91 Unspecified atrial fibrillation; E66.9 Obesity, unspecified; E87.5 Hyperkalemia; R00.1 Bradycardia, unspecified; I49.1 Atrial premature depolarization; R79.89 Other specified abnormal findings of blood chemistry; R94.4 Abnormal results of kidney function studies; Z99.2 Dependence on renal dialysis; Z79.01 Long term (current) use of anticoagulants; Z79.899 Other long term (current) drug therapy; Z91.030 Bee allergy status; Z88.5 Allergy status to narcotic agent; Z68.36 Body mass index [BMI] 36.0-36.9, adult
CPT/HCPCS: 36415; 71045; 80053; 82947; 83735; 83880; 84100; 84484; 85025; 93005; 96374; 96375; 99284; A9270; J0612; J1815; 93010; 99285

== ENCOUNTER 2025-09-06 13:18 | Emergency (ER) | payer MEDICARE, OTHER ==
[2025-09-06 13:44] LABS: BASOPHILS ABSOLUTE AUTO 0.02 K/uL (0.00-0.20); BASOPHILS PERCENT AUTO 0.2 % (0.0-1.0); EOSINOPHILS ABSOLUTE AUTO 0.18 K/uL (0.00-0.45); EOSINOPHILS PERCENT AUTO 1.8 % (0.0-6.0); IMMATURE GRAN ABSOLUTE AUTO 0.02 K/uL (0.00-0.05); IMMATURE GRAN PERCENT AUTO 0.2 % (0.0-0.4); LYMPHOCYTES ABSOLUTE AUTO 1.32 K/uL (1.00-4.80); LYMPHOCYTES PERCENT AUTO 13.1 % (24.0-44.0); MEAN PLATELET VOLUME 9.2 fL (9.4-12.4); MONOCYTES ABSOLUTE AUTO 0.73 K/uL (0.00-0.80); MONOCYTES PERCENT AUTO 7.2 % (0.0-8.0); NEUTROPHILS ABSOLUTE AUTO 7.80 K/uL (1.80-7.70); NEUTROPHILS PERCENT AUTO 77.5 % (41.0-71.0); NRBC ABSOLUTE 0.00 K/uL (0.00-0.02); NRBC PERCENT 0.0 /100WBC (0.0-0.2); PLATELET COUNT,PLT 203 K/uL (150-400); RED BLOOD CELL COUNT 1.94 M/uL (4.52-5.90); WHITE BLOOD CELL COUNT,WBC 10.07 K/uL (3.9-11.3)
[2025-09-06 14:04] LABS: BLOOD UREA NITROGEN,BUN 68.0 mg/dL (7.0-18.0); CARBON DIOXIDE,CO2 26.6 mmol/L (21.0-32.0); CHLORIDE,CL 95.0 mmol/L (98-107); CREATININE 14.5 mg/dL (0.8-1.3); EST CRCL DRUG DOSING (CG) 7.94 mL/min; GLUCOSE RANDOM 120.0 mg/dL (74-106); PHOSPHORUS 4.8 mg/dL (2.6-4.7); POTASSIUM,K 4.9 mmol/L (3.5-5.1); SODIUM,NA 137.0 mmol/L (136-148)
[2025-09-06 14:05] LABS: ESTIMATED GFR 4.0 mL/min (>60)
== END 2025-09-06 19:34 | disposition home or self-care (01) ==
LOC: MW.ED 13:18
DX: I12.0 Hypertensive chronic kidney disease with stage 5 chronic kidney disease or end stage renal disease (principal); N18.6 End stage renal disease; D64.9 Anemia, unspecified; I48.91 Unspecified atrial fibrillation; E78.00 Pure hypercholesterolemia, unspecified; E66.9 Obesity, unspecified; Z79.899 Other long term (current) drug therapy; Z79.01 Long term (current) use of anticoagulants; Z99.2 Dependence on renal dialysis; Z91.030 Bee allergy status; Z88.5 Allergy status to narcotic agent; Z01.89 Encounter for other specified special examinations
CPT/HCPCS: 36415; 36430; 80048; 83735; 84100; 85025; 86850; 86900; 86901; 86920; 93005; 99285; P9016; 93010; 99283

== ENCOUNTER 2025-09-09 13:49 | Emergency (ER) | payer MEDICARE, OTHER ==
[2025-09-09] MEDS ORDERED: Sodium Chloride 0.9% 10 ML Syringe FLUSH PRN (14:44)
[2025-09-09] MEDS ORDERED: Sodium Chloride 0.9% 2.5 ML Syringe FLUSH PRN (14:44)
[2025-09-09 15:27] LABS: BASOPHILS ABSOLUTE AUTO 0.03 K/uL (0.00-0.20); BASOPHILS PERCENT AUTO 0.3 % (0.0-1.0); EOSINOPHILS ABSOLUTE AUTO 0.22 K/uL (0.00-0.45); EOSINOPHILS PERCENT AUTO 1.9 % (0.0-6.0); IMMATURE GRAN ABSOLUTE AUTO 0.03 K/uL (0.00-0.05); IMMATURE GRAN PERCENT AUTO 0.3 % (0.0-0.4); LYMPHOCYTES ABSOLUTE AUTO 1.19 K/uL (1.00-4.80); LYMPHOCYTES PERCENT AUTO 10.3 % (24.0-44.0); MEAN PLATELET VOLUME 9.4 fL (9.4-12.4); MONOCYTES ABSOLUTE AUTO 0.57 K/uL (0.00-0.80); MONOCYTES PERCENT AUTO 4.9 % (0.0-8.0); NEUTROPHILS ABSOLUTE AUTO 9.52 K/uL (1.80-7.70); NEUTROPHILS PERCENT AUTO 82.3 % (41.0-71.0); NRBC ABSOLUTE 0.00 K/uL (0.00-0.02); NRBC PERCENT 0.0 /100WBC (0.0-0.2); PLATELET COUNT,PLT 242 K/uL (150-400); RED BLOOD CELL COUNT 2.19 M/uL (4.52-5.90); WHITE BLOOD CELL COUNT,WBC 11.56 K/uL (3.9-11.3)
[2025-09-09 16:02] LABS: A/G RATIO 0.6 (0.9-1.6); ALANINE AMINOTRANSFERASE,ALT 22 IU/L (14-63); ASPARTATE AMNIOTRANSFERASE,AST 15 IU/L (15-37); BILIRUBIN TOTAL 0.7 mg/dL (0.2-1.0); BLOOD UREA NITROGEN,BUN 97 mg/dL (7.0-18.0); CARBON DIOXIDE,CO2 27.6 mmol/L (21.0-32.0); CHLORIDE,CL 95 mmol/L (98-107); CREATININE 19.5 mg/dL (0.8-1.3); EST CRCL DRUG DOSING (CG) 5.90 mL/min; GLUCOSE RANDOM 95 mg/dL (74-106); POTASSIUM,K 6.1 mmol/L (3.5-5.1); PROTEIN TOTAL,TP 8.8 g/dL (6.4-8.2); SODIUM,NA 136 mmol/L (136-148)
[2025-09-09 16:31] LABS: ESTIMATED GFR 3 mL/min (>60); PRO B-TYPE NATRIUR PEPT,BNPPRO > 35000 pg/mL (0-125)
[2025-09-09] MEDS: Furosemide 40 MG/4 ML VIAL IVPUSH ONE (17:36)
[2025-09-09] MEDS: Sodium Polystyrene Sulfonate 15 GM/60 ML Susp 60 ML Bot PO ONE (17:36)
== END 2025-09-09 18:51 ==
LOC: MW.ED 13:49
DX: D63.1 Anemia in chronic kidney disease (principal); E87.70 Fluid overload, unspecified; I48.91 Unspecified atrial fibrillation; E78.00 Pure hypercholesterolemia, unspecified; E66.9 Obesity, unspecified; M19.90 Unspecified osteoarthritis, unspecified site; N18.6 End stage renal disease; Z75.3 Unavailability and inaccessibility of health-care facilities; Z79.899 Other long term (current) drug therapy; Z79.01 Long term (current) use of anticoagulants; Z88.8 Allergy status to other drugs, medicaments and biological substances; Z91.030 Bee allergy status; Z99.2 Dependence on renal dialysis; Z68.34 Body mass index [BMI] 34.0-34.9, adult
CPT/HCPCS: 36415; 80053; 83735; 83880; 85025; 96374; 99285; A9270; J1938; 99284